=== PATIENT | male | born 1955 | race Caucasian/White ===

== ENCOUNTER → 2024-09-16 06:56 | Outpatient (REF) | payer OTHER, SELFPAY ==
[2024-09-16] MEDS: LEXISCAN 0.4 MG IV (09:28)
== END ==
LOC: RCS 06:56
PROVIDERS: ATTENDING PHYSICIAN Student in an Organized Health Care Education/Training Program
DX: I44.7 Left bundle-branch block, unspecified (principal)
CPT/HCPCS: 78452; 93017; A9500; J2785

== ENCOUNTER → 2024-10-02 07:16 | Outpatient (REF) | payer OTHER, SELFPAY | LOC: HWRCS 07:16 | PROVIDERS: ATTENDING PHYSICIAN Student in an Organized Health Care Education/Training Program; FAMILY PHYSICIAN Student in an Organized Health Care Education/Training Program | DX: R94.39 Abnormal result of other cardiovascular function study (principal); I44.7 Left bundle-branch block, unspecified | CPT/HCPCS: 93306 ==

== ENCOUNTER 2024-10-08 08:52 | Day surgery (SDC) | payer OTHER, SELFPAY ==
[2024-10-08] VITALS (16 sets, daily range): BP systolic 107–150; BP diastolic 48–68
--- NOTE | 2024-10-08 15:50 | ITS.CL.PN ---
Insurance Claims Specialist - Procedure Note
Procedure
Procedure Note:
CARDIAC CATHETERIZATION REPORT
Date of Procedure: 10/08/2024
Referring: Dr. Robi Nix MD, PhD
Indication: positive cardiac stress test, cardiomyopathy
PROCEDURE(S)
1. left heart catheterization
2. coronary angiography
ACCESS: 6F right radial artery (closure: radial band)
CATHETERS
1. 6F JR4
2. 6F JL5 (large root)
MODERATE SEDATION: 20 minutes of moderate sedation was utilized. An independent biomedical service engineer was present to assist with and help manage the patient's level of consciousness and physiologic status.
ULTRASOUND GUIDED VASCULAR ACCESS (right radial artery): Ultrasound was utilized for vascular access. The vessel was visualized under ultrasound and noted to be patent. An image of the vessel was stored permanently in the patient's medical record.
Under direct ultrasound guidance, vascular access was obtained using a modified Seldinger technique and a 6 [place] sheath was placed.
HEMODYNAMIC DATA
LV 111/5 (EDP 10) mmHg
AO 118/55 (mean 79) mmHg
CORONARY ANGIOGRAPHY
Dominance: right
LM: Large, normal
LAD: Large vessel that gives rise to three small diagonal branches and multiple septal perforators. There are trivial luminal irregularities.
LCx: Large vessel giving rise to a single very large branching marginal. There are trivial luminal irregularities.
RCA: Large vessel giving rise to a large early branching RPDA and large RPL system with multiple branches. There are trivial luminal irregularities.
RADIATION: dose 203 mGy; DAP 17 Gy*cm2; fluoroscopy time 8 min
CONCLUSIONS
1. No significant coronary artery disease in a right dominant system with trivial luminal irregularities only
2. Normal LV filling pressure and no aortic stenosis
RECOMMENDATIONS
1. expectant management after cardiac catheterization via right radial approach
2. aggressive primary prevention of coronary artery disease
3. further workup for nonischemic cardiomyopathy including cMRI
4. titration of GDMT for heart failure, will start metoprolol, stop lisinopril and start Entresto, and check labs in 1 week; next will be dapagliflozin
5. no need for aspirin
Copy to: Dr. Sadia Chin MD, PhD (PCP)
Signed: Robi Nix MD, PhD
== END 2024-10-08 14:20 | disposition home or self-care (01) ==
LOC: CATH 08:52
PROVIDERS: ATTENDING PHYSICIAN Student in an Organized Health Care Education/Training Program; FAMILY PHYSICIAN Student in an Organized Health Care Education/Training Program
DX: I42.9 Cardiomyopathy, unspecified (principal); R94.39 Abnormal result of other cardiovascular function study; I10 Essential (primary) hypertension; I44.7 Left bundle-branch block, unspecified; E78.2 Mixed hyperlipidemia; Z79.82 Long term (current) use of aspirin
CPT/HCPCS: 99152; C1894; 76937; 93458; Q9967

== ENCOUNTER → 2024-11-18 07:26 | Outpatient (REF) | payer OTHER, SELFPAY | LOC: RAD 07:26 | PROVIDERS: ATTENDING PHYSICIAN Student in an Organized Health Care Education/Training Program | DX: S00.95XA Superficial foreign body of unspecified part of head, initial encounter (principal) | CPT/HCPCS: 70250 ==

== ENCOUNTER → 2024-12-06 07:01 | Outpatient (REF) | payer OTHER, SELFPAY ==
[2024-12-06 08:55] LABS: Blood Urea Nitrogen 26 mg/dl (9-20); Calcium 9.6 mg/dl (8.4-10.2); Carbon Dioxide 31 mmol/L (22-30); Chloride 100 mmol/L (98-107); Glucose 88 mg/dl (70-99); Potassium 4.3 mmol/L (3.5-5.1); Sodium 138 mmol/L (135-145); eGFR > 60.00
== END ==
LOC: REG 07:01
PROVIDERS: ATTENDING PHYSICIAN Nurse Practitioner; FAMILY PHYSICIAN Student in an Organized Health Care Education/Training Program
DX: I42.8 Other cardiomyopathies (principal)
CPT/HCPCS: 36415; 80048

== ENCOUNTER → 2024-12-12 12:05 | Outpatient (REF) | payer OTHER, SELFPAY | LOC: RAD 12:05 | PROVIDERS: ATTENDING PHYSICIAN Student in an Organized Health Care Education/Training Program; FAMILY PHYSICIAN Student in an Organized Health Care Education/Training Program | DX: I71.21 Aneurysm of the ascending aorta, without rupture (principal) | CPT/HCPCS: 71275; Q9967 ==